=== PATIENT | female | born 1970 | race African-American/Black ===

== ENCOUNTER 2022-02-20 21:44 | Emergency (ER) | payer OTHER, SELFPAY ==
[2022-02-20 21:46] VITALS: BP 190/91; PULSE 91; RESP 17; TEMP 36.5; O2SAT 100
--- NOTE | 2022-02-20 22:32 | PC.NURSE ---
Called once in triage, no answer.
--- NOTE | 2022-02-20 22:45 | PC.NURSE ---
Second call in triage, no answer.
== END 2022-02-20 23:22 | disposition left against medical advice (07) ==
LOC: ANHED 23:10
PROVIDERS: PCP Internal Medicine
DX: R51.9 Headache, unspecified (principal)
CPT/HCPCS: 99199